=== PATIENT | male | born 1980 | race Caucasian/White ===

== ENCOUNTER 2019-11-11 14:37 | Emergency (ER) | payer OTHER ==
[~2019-11-11] VITALS: Ht 172.7 cm; Wt 77.0 kg
[2019-11-11] MEDS ORDERED: EPIV150 PO (15:01)
[2019-11-11] MEDS ORDERED: FLUC100IVB PO (15:01)
[2019-11-11] MEDS ORDERED: TENO300 PO (15:01)
[2019-11-11 15:52] LABS: BASOPHILS % (AUTO) 0.1 % (0.0-2.0); EOSINOPHILS % (AUTO) 0 % (1.0-6.0); LYMPHOCYTES # (AUTO) 1.4 K/uL (1.0-4.8); LYMPHOCYTES % (AUTO) 11.5 % (22.0-44.0); MEAN CORPUSCULAR HEMOGLOBIN 31.1 pg (26.0-34.0); MEAN CORPUSCULAR HGB CONC 34.6 G/dL (31.0-37.0); MEAN CORPUSCULAR VOLUME 90 fL (80-100); MONOCYTES # (AUTO) 1.4 K/uL (0.1-1.0); MONOCYTES % (AUTO) 11.2 % (2.0-9.0); NEUTROPHILS # (AUTO) 9.3 K/uL (1.8-7.7); NEUTROPHILS % (AUTO) 77.2 % (40.0-70.0); PLATELET COUNT (AUTO) 275 K/uL (150-450); RED BLOOD CELL COUNT(AUTO) 6.15 MIL/uL (4.50-5.90); RED CELL DISTRIBUTION WIDTH 12.6 % (11.5-14.5)
[2019-11-11 15:59] LABS: HEMATOCRIT 55.4 % (41-53); HEMOGLOBIN 19.2 g/dL (13.5-17.5)
[2019-11-11] MEDS ORDERED: DOLU50TA PO (16:09)
[2019-11-11] MEDS ORDERED: ACET-66 PO (16:09)
[2019-11-11 16:29] LABS: ANION GAP 8 mmol/L (8-16); CALCIUM, TOTAL 10.3 mg/dL (8.8-10.5); CARBON DIOXIDE 28 mmol/L (22-29); CHLORIDE 95 mmol/L (98-107); CREATININE 0.87 mg/dL (0.60-1.30); GLOMERULAR FILTR. RATE CALC > 60 mL/min (>60); GLUCOSE,RANDOM 169 mg/dL (70-110); POTASSIUM 4.7 mmol/L (3.5-5.1); SODIUM SERUM 131 mmol/L (136-145); UREA NITROGEN, BLOOD 18 mg/dL (7-18)
[2019-11-11 16:34] LABS: AMMONIA 42 umol/L (11-32)
[2019-11-11 16:35] LABS: ALANINE AMINOTRANSFERASE 209 U/L (12-78); ALBUMIN 3.5 g/dL (3.4-5.0); ALKALINE PHOSPHATASE 114 U/L (46-116); ASPARTATE AMINOTRANSFERASE 70 U/L (15-37); CREATINE KINASE, TOTAL ONLY 50 U/L (39-308); TOTAL PROTEIN, SERUM 9.5 g/dL (6.4-8.2)
[2019-11-11 16:36] LABS: TROPONIN I < 0.02 ng/mL (0.00-0.05)
[2019-11-11] MEDS ORDERED: SODIUM CHLORIDE 0.9% 100 ML ONE (16:55)
[2019-11-11] MEDS ORDERED: IOVERSOL 350 MG/ML 100 ML VIAL ONE (16:55)
[2019-11-11 16:59] LABS: B-TYPE NATRIURETIC PEPTIDE < 5 pg/mL (0-100)
[2019-11-11] MEDS ORDERED: NITROPRUSSIDE SODIUM 50 MG in DEXTROSE 5%-WATER 248 ML IV PRN (17:00)
[2019-11-11] MEDS ORDERED: SODIUM CHLORIDE 0.9% 1,000 ML IV ONE (17:00)
[2019-11-11] MEDS ORDERED: FentaNYL CITRATE-PF 100 MCG/2 ML VIAL IVP ONE (17:00)
[2019-11-11 18:28] VITALS: BP 159/93
== END 2019-11-11 18:28 | disposition short-term general hospital (02) ==
LOC: EMS 14:41
DX: I60.9 Nontraumatic subarachnoid hemorrhage, unspecified (principal); Z79.899 Other long term (current) drug therapy; Z20.828 Contact with and (suspected) exposure to other viral communicable diseases
CPT/HCPCS: 36415; 70450; 70496; 70498; 71045; 80053; 82140; 82550; 83880; 84484; 85025; 87426; 93005; 96365; 96375; 99291; G0480; J3010; J3490; J7030; J7050; J7060; Q9967; U0003